=== PATIENT | male | born 1990 | race Two or more races ===

== ENCOUNTER 2023-01-18 15:36 | Emergency (ER) | payer OTHER ==
[2023-01-18 16:04] VITALS: BP 126/83; PULSE 60; RESP 16; TEMP 98.7; BMI 24.1
[2023-01-18] MEDS ORDERED: ACETAMINOPHEN 500 MG TABLET (FP) PO ONE (16:49)
[2023-01-18] MEDS ORDERED: DIPHTH,PERTUSS(ACELL),TET 0.5 ML DISP.SYRIN IM ONE ×2 (16:50→16:56)
[2023-01-18] MEDS ORDERED: ACETAMINOPHEN 500 MG TABLET (FP) ONE (16:56)
== END 2023-01-18 17:14 | disposition home or self-care (01) ==
LOC: FER 15:36
PROC: 3E0234Z Introduction of Serum, Toxoid and Vaccine into Muscle, Percutaneous Approach (ICD-10-PCS; principal; 2023-01-18)
DX: S00.511A Abrasion of lip, initial encounter (principal); R22.0 Localized swelling, mass and lump, head; Y35.811A Legal intervention involving manhandling, law enforcement official injured, initial encounter
CPT/HCPCS: 90715; 99283-25

== ENCOUNTER 2024-03-05 14:05 | Emergency (ER) | payer OTHER ==
[2024-03-05 14:23] VITALS: BP 132/83; PULSE 60; RESP 15; TEMP 99; BMI 24.1
[2024-03-05 14:57] LABS: HEMOGLOBIN 16.5 G/dL (11.7-16.9); MCH 32.4 pg (25.7-33.7); MCHC 33.7 g/dl (32.0-35.9); MEAN CELL VOLUME 96.3 fl (80-96); MEAN PLT VOLUME 8.8 fl (7.5-11.1); PLATELET COUNT 208.8 10^3/uL (134-434); RBC 5.09 10^6/uL (4.00-5.60); WHITE BLOOD COUNT 9.4 10^3/uL (4.0-10.8)
[2024-03-05 15:15] LABS: ALBUMIN 4.9 g/dl (3.4-5.0); BILIRUBIN,TOTAL 0.7 mg/dl (0.2-1); CALCIUM 9.4 mg/dl (8.5-10.1); CREATININE 1.3 mg/dl (0.6-1.3); PHOSPHOROUS 3.7 (2.5-4.9); POTASSIUM 3.9 mmol/L (3.5-5.1); TOT PROT 6.8 g/dl (6.4-8.2)
[2024-03-05 15:44] LABS: PLATELET ESTIMATE ADEQUATE
[2024-03-05 17:14] LABS: HIV INTERPRETATION NEGATIVE (NEGATIVE)
== END 2024-03-05 14:49 | disposition home or self-care (01) ==
LOC: FER 14:05
DX: Z77.21 Contact with and (suspected) exposure to potentially hazardous body fluids (principal)
CPT/HCPCS: 36415; 80053; 82465; 82977; 84100; 85025; 86704; 86803; 87340; 87389; 87517; 99283-25